=== PATIENT | female | born 1970 | race Caucasian/White ===

== ENCOUNTER → 2017-01-26 | Outpatient (CLI) | payer OTHER | LOC: FIMAGING 16:17 | DX: Z12.31 Encounter for screening mammogram for malignant neoplasm of breast (principal) | CPT/HCPCS: G0202 ==

== ENCOUNTER → 2017-02-20 | Outpatient (CLI) | payer OTHER | LOC: BMCIMAGING 10:02 | PROVIDERS: ATTEND Podiatrist Foot & Ankle Surgery | DX: M77.32 Calcaneal spur, left foot (principal) ==

== ENCOUNTER 2017-08-03 09:26 | Emergency (ER) | payer OTHER ==
--- NOTE | 2017-08-03 10:09 | EDPHY ---
H & P Stated Complaint: R calf pain/swelling worse x 4 days--pcp sent r/o dvt Source: Patient, Family - Personal History LMP (Females 10-55): 22-28 Days Ago Current Tetanus/Diphtheria Vaccine: Unsure Current Tetanus Diphtheria and Acellular Pertussis (TDAP): Unsure - Medical/Surgical History Hx Asthma: No Hx Chronic Respiratory Disease: No Hx Diabetes: No Hx Cardiac Disease: No Hx Renal Disease: No Hx Cirrhosis: No Hx Alcoholism: No Hx HIV/AIDS: No Hx Splenectomy or Spleen Trauma: No Other PMH: kidney stones - Social History Smoking Status: Never smoked Time Seen by Provider: 08/03/17 10:06 HPI/ROS: HPI: This is a 47 year old female who presents with Chief Complaint: R calf pain/swelling worse x 4 days--pcp sent r/o dvt Location: right calf Quality: Swelling and pain Duration: 4 days Signs and Symptoms: No bleeding, no radiation, no numbness, no weakness, no tingling, no incontinence, no decreased range of motion, no injury Timing: Sudden onset, constant Severity: Moderate Context: Patient complains of right calf pain and swelling over the last 4 days. She took a plane trip last week and is on control pills. She was sent to the emergency room for by her clinical pharmacist to evaluate for DVT. She is currently under care for a left heel spur with physical therapy and dry needling and has a history of mild right knee osteoarthritis. Patient believes she may be bearing more weight on her right leg to compensate for the pain she is feeling in her left foot. Denies any shortness of breath/wheezing/ palpitations/chest pain. Modifying Factors: None Comment: ROS: see HPI Constitutional: No fever, no chills, no weight loss Eyes: No blurred vision Respiratory: No shortness of breath, no cough Cardiovascular: No chest pain Gastrointestinal: No nausea, no vomiting no diarrhea Genitourinary: No dysuria Extremities: No myalgias Neurologic: No weakness, no numbness Skin: No rashes Hematologic: No bruising, no bleeding MEDICAL/SURGICAL/SOCIAL HISTORY: Medical history: Generally healthy. Does not take any regular medications. Surgical history: Denies Social history: . CONSTITUTIONAL: awake and alert, no obvious distress HEENT: Atraumatic and normocephalic, PERRL, EOMI. Tympanic membranes clear. Oropharynx clear, no exudate and moist pink mucosa. Airway patent. No lymphadenopathy. No meningismus. Cardiovascular: Normal S1/S2, regular rate, regular rhythm, without murmur rub or gallop. PULMONARY/CHEST: Symmetrical and nontender. Clear to auscultation bilaterally. Good air movement. No accessory muscle usage. ABDOMEN: Soft, nondistended, nontender, no rebound, no guarding, no peritoneal signs, no masses or organomegaly. No CVAT. EXTREMITIES: 2/2 pedal pulses, right calf is mildly larger than the left calf; moderate pain with palpation. No palpable cords. no deformities, no clubbing, no cyanosis or edema. Right knee has mild crepitus with extension; no joint line tenderness; stable to varus and valgus exam; flexion to 120 with full extension to 180. No skin discoloration noted. Achilles tendon intact. Right ankle has full range of motion. NEUROLOGICAL: no focal neuro deficits. GCS 15. SKIN: Warm and dry, no erythema. no rash. Good capillary refill. (Tiffany Murillo) Constitutional: Initial Vital Signs Temperature (C) 37.2 C 08/03/17 09:32 Heart Rate 91 08/03/17 09:32 Respiratory Rate 18 08/03/17 09:32 Blood Pressure 127/80 H 08/03/17 09:32 O2 Sat (%) 96 08/03/17 09:32 O2 Delivery Mode Room Air Allergies/Adverse Reactions: caffeine [Caffeine] Allergy (Unknown, Verified 10/22/09 16:30) clindamycin HCl [From Cleocin] Allergy (Verified 10/22/09 16:30) Clindamycin Palmitate [From Cleocin] Allergy (Verified 10/22/09 16:30) clindamycin phosphate [From Cleocin] Allergy (Verified 10/22/09 16:30) Home Medications: Medication Instructions Recorded Control 10/22/09 ZYRTEC 10/22/09 Levothyroxine 08/03/17 Medical Decision Making - Diagnostics Imaging Results: Imaging Impressions Extremity Venous Study 08/03/17 10:06 Impression: No deep venous thrombosis right leg. Findings and recommendations discussed with Emergency Department physicianTiffany at 10:46 hour, 08/03/2017. Final report concurs with initial preliminary interpretation. ED Course/Re-evaluation: Right lower extremity ultrasound ordered to evaluate for DVT No tachycardia/hypoxia. 1045: Called by radiologist who informed me that right lower extremity ultrasound is negative for deep venous thrombosis. No signs of neurovascular compromise/tenting of skin/compartment syndrome/ extremities and joints examined above and below area of concern and are neurovascularly intact. (Tiffany Murillo) I did not see this patient while she was in the emergency department. However her care was discussed with the PA while the patient was in the department. I agree with treatment plan and management (Oj Santos) Differential Diagnosis: Differential diagnosis includes but is not limited to osteoarthritis, favoring right limb and overuse syndrome, deep venous thrombosis. (Tiffany Murillo) Departure - Departure Disposition: Home, Routine, Self-Care Clinical Impression: Suspected condition not found, Unspecified soft tissue disorder related to use , overuse and pressure, right lower leg, Arthritis of knee, right, Calcaneal spur, left Condition: Good Instructions: Deep Venous Thrombosis (ED), RICE Therapy (ED) Additional Instructions: Your ultrasound today does not show a deep venous thrombosis. It appears that your calf swelling and pain are due to favoring your right lower extremity secondary to your left heel spur and overuse. Please follow-up with Podiatry for further intervention and care. RICE therapy. Referrals: Sterling Hernandez MD [Primary Care Provider] - As per Instructions
[2017-08-03 11:28] VITALS: BP 122/70; PULSE 74; RESP 16; TEMP 98.6; O2SAT 98
== END 2017-08-03 11:28 | disposition home or self-care (01) ==
DX: M79.89 Other specified soft tissue disorders (principal); L97.919 Non-pressure chronic ulcer of unspecified part of right lower leg with unspecified severity; M17.9 Osteoarthritis of knee, unspecified; M77.31 Calcaneal spur, right foot

== ENCOUNTER → 2018-02-19 | Outpatient (CLI) | payer OTHER | LOC: BMCIMAGING 16:19 | PROVIDERS: ATTEND Podiatrist Foot & Ankle Surgery | DX: M25.571 Pain in right ankle and joints of right foot (principal) ==